=== PATIENT | female | born 1950 | race Caucasian/White ===

== ENCOUNTER → 2018-01-19 | Outpatient (CLI) | payer MEDICARE | END | disposition home or self-care (01) | LOC: CFH 12:57 | PROVIDERS: ATTEND Nurse Practitioner Primary Care | DX: Z12.31 Encounter for screening mammogram for malignant neoplasm of breast (principal) | CPT/HCPCS: 77067 ==

== ENCOUNTER → 2018-05-19 | Outpatient (CLI) | payer MEDICARE | END | disposition home or self-care (01) | LOC: CFH 12:55 | PROVIDERS: ATTEND Nurse Practitioner Primary Care | DX: M47.896 Other spondylosis, lumbar region (principal); M48.061 Spinal stenosis, lumbar region without neurogenic claudication; M54.16 Radiculopathy, lumbar region | CPT/HCPCS: 72148 ==

== ENCOUNTER 2018-10-03 23:40 | Emergency (ER) | payer MEDICARE ==
[~2018-10-03] VITALS: Ht 162.6 cm; Wt 79.4 kg
[2018-10-04] MEDS ORDERED: LIDOCAINE-MPF 1%, 5ML ONE (00:02)
[2018-10-04] MEDS ORDERED: BUPIVACAINE 0.25% ONE ×2 (00:02→00:32)
[2018-10-04 00:21] VITALS: BP 132/77
--- NOTE | 2018-10-04 00:21 | NUR ---
PA AT BEDSIDE PROVIDING DENTAL BLOCK TO LEFT LOWER JAW. PT TOLERATED WELL. UPDATED ON DISCHARGE INSTRUCTIONS.
[2018-10-04] MEDS ORDERED: BUPIVACAINE 0.25% INFIL ONE (00:30)
[2018-10-04] MEDS ORDERED: LIDOCAINE-MPF 1%, 5ML INFIL ONE (00:30)
[2018-10-04] MEDS ORDERED: LIDOCAINE-MPF 1%, 2ML ONE (00:32)
--- NOTE | 2018-10-04 00:33 | NUR ---
PER SHANTEL JARQUIN, ADDITIONAL MEDICATIONS PULLED OUT SO SHANTEL JARQUIN CAN PROVIDE ADDITIONAL BLOCK.
== END 2018-10-04 00:24 | disposition home or self-care (01) ==
LOC: ED 23:59
DX: K08.89 Other specified disorders of teeth and supporting structures (principal)
CPT/HCPCS: 64400; 99284

== ENCOUNTER → 2018-10-05 | Outpatient (CLI) | payer MEDICARE | END | disposition home or self-care (01) | LOC: CFH 06:38 | PROVIDERS: ATTEND Internal Medicine Cardiovascular Disease | DX: I34.0 Nonrheumatic mitral (valve) insufficiency (principal); I37.1 Nonrheumatic pulmonary valve insufficiency; I49.3 Ventricular premature depolarization | CPT/HCPCS: 78452; 93017; 93306; A9502 ==

== ENCOUNTER 2018-12-05 16:02 | Inpatient (IN) | payer MEDICARE ==
[~2018-12-05] VITALS: Ht 162.6 cm; Wt 76.5 kg
[2018-12-05] MEDS ORDERED: SODIUM CHLORIDE FLUSH 10ML SYR IVF ONE (16:30)
--- NOTE | 2018-12-05 16:58 | NUR ---
Pt to room from lobby.
[2018-12-05 17:07] LABS: BASOPHILS # (AUTO) 0.01 x10^3/uL (0-0.1); BASOPHILS % (AUTO) 0 % (0-1); EOSINOPHILS # (AUTO) 0.17 x10^3/uL (0-0.4); EOSINOPHILS % (AUTO) 2 % (1-7); LYMPHOCYTES # (AUTO) 0.26 x10^3/uL (1-3.4); LYMPHOCYTES % (AUTO) 4 % (22-44); MD NO; MEAN CORPUSCULAR HEMOGLOBIN 29.5 pg (27.0-34.8); MEAN CORPUSCULAR HGB CONC 33.5 g/dL (32.4-35.8); MEAN CORPUSCULAR VOLUME 88.1 fL (80-100); MEAN PLATELET VOLUME 9.1 fL (7.4-10.4); MONOCYTES # (AUTO) 0.37 x10^3/uL (0.2-0.8); MONOCYTES % (AUTO) 5 % (2-9); NEUTROPHILS # (AUTO) 6.52 x10^3/uL (1.8-6.8); NEUTROPHILS % (AUTO) 89 % (42-75); PLATELET COUNT 222 x10^3/uL (130-400); RED BLOOD COUNT 4.16 x10^6/uL (3.82-5.3); RED CELL DISTRIBUTION WIDTH 16.1 % (9.6-15.2)
[2018-12-05 17:16] LABS: ALANINE AMINOTRANSFERASE 287 U/L (12-78); ALBUMIN 3.2 g/dL (3.4-5.0); ANION GAP 17 mmol/L (5-15); CALCIUM 9.2 mg/dL (8.5-10.1); CHLORIDE 96 mmol/L (98-107); CREATININE 0.74 mg/dL (0.55-1.02)
[2018-12-05 17:19] LABS: ALKALINE PHOSPHATASE 541 U/L (45-117); BILIRUBIN,TOTAL 4.4 mg/dL (0.2-1.0); TOTAL PROTEIN 7.7 g/dL (6.4-8.2)
--- NOTE | 2018-12-05 17:44 | NUR ---
PT STATES SHE HAS HAD EPIGASTRIC PAIN FOR 2.5 WEEKS, ESPECIALLY AFTER EATING. RADIATES TO RIGHT SHOULDER. SOMETIMES SHE FEELS LIKE SHE IS GOING TO BLACK OUT. PT AMBULATED TO BATHROOM WITH ASSISTANCE OF
[2018-12-05 18:07] LABS: MICROSCOPIC INDICATED
[2018-12-05 18:26] LABS: CULTURE INDICATED? NO
[2018-12-05 18:40] LABS: INTERNATIONAL NORMALIZED RATIO 1.05 (0.93-1.1)
[2018-12-05] MEDS ORDERED: SODIUM CHLORIDE 0.9% 1,000 ML IV SCH (19:00)
[2018-12-05] MEDS ORDERED: hydrALAzine 20 MG/ML, 1ML IVPush PRN (19:00)
[2018-12-05] MEDS ORDERED: ONDANSETRON 2MG/ML, 2ML IVPush PRN (19:00)
[2018-12-05] MEDS ORDERED: SODIUM CHLORIDE FLUSH 10ML SYR IVF PRN (19:00)
[2018-12-05] MEDS ORDERED: MORPHINE SULFATE 4 MG/ML, 1ML ONE (19:32)
--- NOTE | 2018-12-05 19:39 | NUR ---
AFTER SEEN BY HOSPITALIST MEDICATED FOR PAIN PER ORDERS.
--- NOTE | 2018-12-05 20:02 | NUR ---
REPORT TO MAVIS MILTON. PT TO BE TRANSPORTED TO FLOOR
[2018-12-05] MEDS ORDERED: CEFTRIAXONE PMX 2GM/50ML 50 ML ONE (20:03)
[2018-12-05] MEDS: CEFTRIAXONE PMX 2GM/50ML 50 ML IV SCH (21:03)
[2018-12-05] MEDS: FAMOTIDINE 20 MG/2 ML IVPush SCH (21:03)
[2018-12-05 21:36] VITALS: BP 134/72
[2018-12-05] MEDS ORDERED: METOPROLOL SUCCINATE 25 MG TAB.ER.24H PO SCH (22:30)
[2018-12-05] MEDS: METRONIDAZOLE PMX 500MG/100ML 100 ML IV SCH (22:57)
[2018-12-05] MEDS: LISINOPRIL 10 MG TABLET PO SCH (23:02)
[2018-12-05] MEDS: MORPHINE SULFATE 4 MG/ML, 1ML IVPush PRN (23:21)
[2018-12-06 01:39] VITALS: BP 127/67
[2018-12-06] MEDS ORDERED: LISI30TA4 PO (02:27)
[2018-12-06] MEDS ORDERED: DULA0.75 SC (02:27)
[2018-12-06] MEDS ORDERED: METO25TA91 PO (02:27)
[2018-12-06] MEDS ORDERED: SITA100T PO (02:27)
[2018-12-06] MEDS ORDERED: ATOR-2 PO (02:27)
[2018-12-06] MEDS ORDERED: METF10007 PO (02:27)
[2018-12-06] MEDS ORDERED: NITR0.6T4 SL (02:27)
[2018-12-06] MEDS ORDERED: GLIP5TAB10 PO (02:27)
[2018-12-06] MEDS: MORPHINE SULFATE 4 MG/ML, 1ML IVPush PRN ×4 (04:26→19:55)
[2018-12-06 05:34] LABS: MEAN CORPUSCULAR HEMOGLOBIN 28.6 pg (27.0-34.8); MEAN CORPUSCULAR HGB CONC 33.1 g/dL (32.4-35.8); MEAN CORPUSCULAR VOLUME 86.3 fL (80-100); MEAN PLATELET VOLUME 8.8 fL (7.4-10.4); PLATELET COUNT 192 x10^3/uL (130-400); RED BLOOD COUNT 3.99 x10^6/uL (3.82-5.3)
[2018-12-06 05:44] LABS: ALBUMIN 2.7 g/dL (3.4-5.0); ANION GAP 12 mmol/L (5-15); CALCIUM 8.6 mg/dL (8.5-10.1); CHLORIDE 99 mmol/L (98-107)
[2018-12-06 05:46] LABS: ALANINE AMINOTRANSFERASE 233 U/L (12-78); ALKALINE PHOSPHATASE 515 U/L (45-117); BILIRUBIN,TOTAL 3.6 mg/dL (0.2-1.0); CREATININE 0.69 mg/dL (0.55-1.02); TOTAL PROTEIN 6.8 g/dL (6.4-8.2)
[2018-12-06] MEDS: METOPROLOL SUCCINATE 25 MG TAB.ER.24H PO SCH (06:17)
[2018-12-06] MEDS: METRONIDAZOLE PMX 500MG/100ML 100 ML IV SCH ×3 (06:20→19:55)
[2018-12-06 06:45] LABS: MD YES
[2018-12-06 06:48] LABS: BAND#(MANUAL) 0.74 x10^3/uL; BANDS%(MANUAL) 11 % (0-7); EOS% (MANUAL) 6 % (1-7); LYMPH#(MANUAL) 0.74 x10^3/uL (1-3.4); LYMPHS% (MANUAL) 11 % (22-44); MONOS#(MANUAL) 0.54 x10^3/uL (0.3-2.7); MONOS% (MANUAL) 8 % (2-9); SEG#(MANUAL) 4.29 x10^3/uL (1.8-6.8); SEGS% (MANUAL) 64 % (42-75)
[2018-12-06 06:49] LABS: ACANTHOCYTES 1+; ANISOCYTOSIS 1+
[2018-12-06 06:50] LABS: OVALOCYTES 1+
[2018-12-06 06:51] LABS: <PLATELET ESTIMATE> ADEQUATE; <PLT MORPHOLOGY> NORMAL PLT MORPH
[2018-12-06 07:38] VITALS: BP 90/54
[2018-12-06] MEDS ORDERED: NS + 40MEQ KCL 1,000 ML IV SCH (08:30)
[2018-12-06] MEDS: LISINOPRIL 10 MG TABLET PO SCH (09:00)
[2018-12-06] MEDS ORDERED: LISINOPRIL 20 MG TABLET ONE (10:01)
[2018-12-06] MEDS: FAMOTIDINE 20 MG/2 ML IVPush SCH ×2 (10:11→21:11)
[2018-12-06] MEDS ORDERED: HYDROcodone/APAP 5/325 TABLET PO PRN (10:30)
[2018-12-06 12:33] VITALS: BP 119/70
[2018-12-06] MEDS ORDERED: DIPHENHYDRAMINE 50 MG/ML, 1ML IVPush ONE (15:00)
[2018-12-06 21:02] VITALS: BP 123/69
[2018-12-06] MEDS: CEFTRIAXONE PMX 2GM/50ML 50 ML IV SCH (21:12)
[2018-12-07 00:11] VITALS: BP 116/67
[2018-12-07] MEDS: MORPHINE SULFATE 4 MG/ML, 1ML IVPush PRN ×6 (01:29→22:48)
[2018-12-07] MEDS: METRONIDAZOLE PMX 500MG/100ML 100 ML IV SCH ×3 (04:15→20:57)
[2018-12-07 04:37] LABS: BASOPHILS % (AUTO) 0 % (0-1); EOSINOPHILS # (AUTO) 0.46 x10^3/uL (0-0.4); EOSINOPHILS % (AUTO) 7 % (1-7); LYMPHOCYTES # (AUTO) 0.77 x10^3/uL (1-3.4); LYMPHOCYTES % (AUTO) 12 % (22-44); MD NO; MEAN CORPUSCULAR HEMOGLOBIN 29.7 pg (27.0-34.8); MEAN CORPUSCULAR HGB CONC 33.6 g/dL (32.4-35.8); MEAN CORPUSCULAR VOLUME 88.3 fL (80-100); MEAN PLATELET VOLUME 8.6 fL (7.4-10.4); MONOCYTES # (AUTO) 0.26 x10^3/uL (0.2-0.8); MONOCYTES % (AUTO) 4 % (2-9); NEUTROPHILS % (AUTO) 76 % (42-75); PLATELET COUNT 197 x10^3/uL (130-400); RED BLOOD COUNT 3.75 x10^6/uL (3.82-5.3); RED CELL DISTRIBUTION WIDTH 16.2 % (9.6-15.2)
[2018-12-07 04:46] LABS: ALANINE AMINOTRANSFERASE 181 U/L (12-78); ALBUMIN 2.5 g/dL (3.4-5.0); ANION GAP 11 mmol/L (5-15); CALCIUM 8.5 mg/dL (8.5-10.1); CHLORIDE 106 mmol/L (98-107); CREATININE 0.58 mg/dL (0.55-1.02)
[2018-12-07 04:49] LABS: ALKALINE PHOSPHATASE 483 U/L (45-117); BILIRUBIN,TOTAL 2.9 mg/dL (0.2-1.0); TOTAL PROTEIN 6.2 g/dL (6.4-8.2)
[2018-12-07 05:40] VITALS: BP 110/65
[2018-12-07] MEDS: METOPROLOL SUCCINATE 25 MG TAB.ER.24H PO SCH (05:41)
[2018-12-07 07:02] VITALS: BP 100/57
[2018-12-07] MEDS: LISINOPRIL 10 MG TABLET PO SCH (09:00)
[2018-12-07 09:29] LABS: THYROID STIMULATING HORMONE 0.558 mIU/L (0.358-3.740)
[2018-12-07 09:39] LABS: INTERNATIONAL NORMALIZED RATIO 1.11 (0.93-1.1); PROTHROMBIN TIME 11.6 Seconds (9.6-11.5)
[2018-12-07] MEDS: FAMOTIDINE 20 MG/2 ML IVPush SCH ×2 (10:04→19:39)
[2018-12-07 11:25] LABS: AMPHETAMINE SCREEN, URINE Negative (Negative); BARBITURATE SCREEN, URINE Negative (Negative); BENZODIAZEPINE SCREEN, URINE Negative (Negative); CANNABINOID SCREEN, URINE Negative (Negative); COCAINE SCREEN, URINE Negative (Negative); OPIATE SCREEN, URINE Positive (Negative)
[2018-12-07 11:31] LABS: METHADONE SCREEN, URINE Negative (Negative)
[2018-12-07 12:00] VITALS: BP 131/66
[2018-12-07] MEDS ORDERED: FENTANYL PF 250 MCG/5ML ONE (14:12)
[2018-12-07] MEDS ORDERED: PROPOFOL 10 MG/ML, 20ML ONE (14:13)
[2018-12-07] MEDS ORDERED: SUCCINYLCHOLINE 20 MG/ML, 10ML ONE (14:13)
[2018-12-07] MEDS ORDERED: ROCURONIUM 10MG/ML,5ML ONE (14:13)
[2018-12-07] MEDS ORDERED: PROMETHAZINE 25 MG/ML, 1ML IV PRN (14:30)
[2018-12-07] MEDS ORDERED: OXYcodone 5 MG/5 ML ORAL.SOL UDC PO PRN (14:30)
[2018-12-07] MEDS ORDERED: LABETALOL 5MG/ML, 20ML IV PRN (14:30)
[2018-12-07] MEDS ORDERED: ONDANSETRON 2MG/ML, 2ML IV PRN ×2 (14:30→18:30)
[2018-12-07] MEDS ORDERED: HYDROmorphone 2 MG/ML, 1ML IVPush PRN ×2 (14:30→18:30)
[2018-12-07] MEDS ORDERED: MEPERIDINE/PF 25MG/0.5ML IVPush PRN (14:30)
[2018-12-07] MEDS ORDERED: hydrALAzine 20 MG/ML, 1ML IV PRN (14:30)
[2018-12-07] MEDS ORDERED: BUPIVACAINE/EPI 0.5% 1:200K ONE (14:36)
[2018-12-07] MEDS ORDERED: HYDROCORTISONE 100 MG INJ. ONE (14:54)
[2018-12-07] MEDS ORDERED: KETOROLAC 30 MG/1 ML ONE (15:03)
[2018-12-07] MEDS ORDERED: ONDANSETRON 2MG/ML, 2ML ONE (15:16)
[2018-12-07] MEDS ORDERED: PIPERACILLIN/TAZO/PMX 3.375GM 50 ML IV ONE (15:30)
[2018-12-07] MEDS ORDERED: FENTANYL PF 100 MCG/2ML ONE (15:36)
[2018-12-07] MEDS ORDERED: OXYcodone 5 MG/5 ML ORAL.SOL UDC ONE (15:37)
[2018-12-07] MEDS: FENTANYL PF 100 MCG/2ML IV PRN ×2 (15:39→16:03)
[2018-12-07] MEDS ORDERED: HYDROcodone/APAP 5/325 TABLET PO PRN (18:30)
[2018-12-07] MEDS ORDERED: DIPHENHYDRAMINE 25 MG CAPSULE PO PRN (18:30)
[2018-12-07] MEDS ORDERED: morphine SULFATE 10 MG/ML, 1ML IV PRN (18:30)
[2018-12-07] MEDS ORDERED: DIPHENHYDRAMINE 50 MG/ML, 1ML IV PRN (18:30)
[2018-12-07 19:25] VITALS: BP 115/64
[2018-12-07] MEDS: CIPROFLOXACIN/PMX 400MG/200ML 200 ML IVPB SCH (19:39)
[2018-12-07] MEDS: POTASSIUM CHLORIDE 20 MEQ in LACTATED RINGERS 1,000 ML IV SCH (19:39)
[2018-12-07] MEDS: CEFTRIAXONE PMX 2GM/50ML 50 ML IV SCH (22:04)
[2018-12-08 00:11] VITALS: BP 106/60
[2018-12-08 04:00] VITALS: BP 113/56
[2018-12-08] MEDS: METRONIDAZOLE PMX 500MG/100ML 100 ML IV SCH ×3 (04:02→20:37)
[2018-12-08 05:09] LABS: ALANINE AMINOTRANSFERASE 186 U/L (12-78); ALBUMIN 2.8 g/dL (3.4-5.0); ANION GAP 9 mmol/L (5-15); CALCIUM 9.5 mg/dL (8.5-10.1); CHLORIDE 104 mmol/L (98-107)
[2018-12-08 05:12] LABS: ALKALINE PHOSPHATASE 556 U/L (45-117); BILIRUBIN,TOTAL 2.2 mg/dL (0.2-1.0)
[2018-12-08 05:22] LABS: BASOPHILS # (AUTO) 0.03 x10^3/uL (0-0.1); BASOPHILS % (AUTO) 0 % (0-1); EOSINOPHILS # (AUTO) 0.12 x10^3/uL (0-0.4); EOSINOPHILS % (AUTO) 1 % (1-7); LYMPHOCYTES % (AUTO) 13 % (22-44); MD NO; MEAN CORPUSCULAR HEMOGLOBIN 28.7 pg (27.0-34.8); MEAN CORPUSCULAR HGB CONC 32.6 g/dL (32.4-35.8); MEAN CORPUSCULAR VOLUME 87.8 fL (80-100); MEAN PLATELET VOLUME 8.5 fL (7.4-10.4); MONOCYTES # (AUTO) 0.24 x10^3/uL (0.2-0.8); MONOCYTES % (AUTO) 3 % (2-9); NEUTROPHILS # (AUTO) 6.85 x10^3/uL (1.8-6.8); NEUTROPHILS % (AUTO) 82 % (42-75); PLATELET COUNT 212 x10^3/uL (130-400); RED BLOOD COUNT 4.11 x10^6/uL (3.82-5.3); RED CELL DISTRIBUTION WIDTH 16.5 % (9.6-15.2)
[2018-12-08] MEDS: ENOXAPARIN 40 MG/0.4 ML SQ SCH (05:33)
[2018-12-08] MEDS: METOPROLOL SUCCINATE 25 MG TAB.ER.24H PO SCH (05:33)
[2018-12-08] MEDS: MORPHINE SULFATE 4 MG/ML, 1ML IVPush PRN ×4 (05:33→17:57)
[2018-12-08 07:28] VITALS: BP 128/73
[2018-12-08] MEDS: CIPROFLOXACIN/PMX 400MG/200ML 200 ML IVPB SCH (07:30)
[2018-12-08] MEDS: FAMOTIDINE 20 MG/2 ML IVPush SCH (07:30)
[2018-12-08] MEDS: LISINOPRIL 10 MG TABLET PO SCH (07:30)
[2018-12-08] MEDS: POTASSIUM CHLORIDE 20 MEQ in LACTATED RINGERS 1,000 ML IV SCH (11:11)
[2018-12-08 13:23] VITALS: BP 113/60
[2018-12-08] MEDS: OXYcodone/APAP 5/325MG TABLET PO PRN ×2 (14:54→20:37)
[2018-12-08] MEDS ORDERED: SENNOSIDES 8.6 MG TABLET PO ONE (18:30)
[2018-12-08 18:48] VITALS: BP 115/57
[2018-12-08] MEDS: FAMOTIDINE 20 MG TABLET PO SCH (20:37)
[2018-12-08] MEDS: CEFTRIAXONE PMX 2GM/50ML 50 ML IV SCH (22:36)
[2018-12-09 00:25] VITALS: BP 117/66
[2018-12-09] MEDS: POTASSIUM CHLORIDE 20 MEQ in LACTATED RINGERS 1,000 ML IV SCH ×2 (02:11→15:11)
[2018-12-09] MEDS: METRONIDAZOLE PMX 500MG/100ML 100 ML IV SCH ×2 (04:29→13:19)
[2018-12-09] MEDS: ENOXAPARIN 40 MG/0.4 ML SQ SCH (04:30)
[2018-12-09] MEDS: METOPROLOL SUCCINATE 25 MG TAB.ER.24H PO SCH (04:30)
[2018-12-09] MEDS: OXYcodone/APAP 5/325MG TABLET PO PRN ×3 (04:30→13:19)
[2018-12-09 07:04] VITALS: BP 136/56
[2018-12-09 07:31] LABS: ALANINE AMINOTRANSFERASE 130 U/L (12-78); ALBUMIN 2.2 g/dL (3.4-5.0); ANION GAP 8 mmol/L (5-15); CALCIUM 8.4 mg/dL (8.5-10.1); CHLORIDE 105 mmol/L (98-107); CREATININE 0.47 mg/dL (0.55-1.02)
[2018-12-09 07:33] LABS: ALKALINE PHOSPHATASE 413 U/L (45-117); BILIRUBIN,TOTAL 1.4 mg/dL (0.2-1.0); TOTAL PROTEIN 5.7 g/dL (6.4-8.2)
[2018-12-09] MEDS: FAMOTIDINE 20 MG TABLET PO SCH (08:39)
[2018-12-09] MEDS: LISINOPRIL 10 MG TABLET PO SCH (08:39)
[2018-12-09] MEDS ORDERED: POLYETHYLENE GLYCOL 17 GM PACKET PO SCH (09:00)
[2018-12-09] MEDS: MORPHINE SULFATE 4 MG/ML, 1ML IVPush PRN (11:57)
[2018-12-09 14:37] VITALS: BP 146/72
[2018-12-09] MEDS ORDERED: POTASSIUM CHLORIDE 20 MEQ TAB.ER.PRT PO ONE (15:00)
[2018-12-16] MEDS ORDERED: LAMO25TB7 PO (15:18)
== END 2018-12-09 18:44 | disposition home or self-care (01) | DRG 417 ==
LOC: ED 17:53 → EDIP 18:57 → 3NW 20:39
PROVIDERS: ADMIT Family Medicine; ATTEND Family Medicine
PROC: 0FT44ZZ Resection of Gallbladder, Percutaneous Endoscopic Approach (ICD-10-PCS; principal; 2018-12-07 15:00)
DX: K80.63 Calculus of gallbladder and bile duct with acute cholecystitis with obstruction (principal); R65.11 Systemic inflammatory response syndrome (SIRS) of non-infectious origin with acute organ dysfunction; E87.1 Hypo-osmolality and hyponatremia; E46 Unspecified protein-calorie malnutrition; B17.9 Acute viral hepatitis, unspecified; D72.825 Bandemia; E11.9 Type 2 diabetes mellitus without complications; E78.5 Hyperlipidemia, unspecified; E87.6 Hypokalemia; I10 Essential (primary) hypertension; I25.10 Atherosclerotic heart disease of native coronary artery without angina pectoris; N28.89 Other specified disorders of kidney and ureter; Z68.28 Body mass index [BMI] 28.0-28.9, adult; Z87.891 Personal history of nicotine dependence; Z90.710 Acquired absence of both cervix and uterus; Z88.6 Allergy status to analgesic agent; Z88.2 Allergy status to sulfonamides; Z90.49 Acquired absence of other specified parts of digestive tract
CPT/HCPCS: 36415; 74181; 78226; 80053; 80074; 80307; 81001; 82962; 82977; 83540; 83550; 83690; 83880; 84443; 85025; 85610; 85730; 86308; 87496; 87806; 88304; 93005; 99285; G0378; J0696; J0744; J1650; J1885; J2405; J2704; J3010; J3480; A9537; C9898; G0475; J0330; J1200; J1720; J2270; J3490; J7030; J7120

== ENCOUNTER 2019-01-18 11:48 | Outpatient (CLI) | payer MEDICARE | END 2019-01-18 23:59 | disposition home or self-care (01) | LOC: CFH 11:48 | PROVIDERS: ATTEND Nurse Practitioner Primary Care | DX: K76.89 Other specified diseases of liver (principal); K86.89 Other specified diseases of pancreas; K57.90 Diverticulosis of intestine, part unspecified, without perforation or abscess without bleeding; N28.89 Other specified disorders of kidney and ureter; I81 Portal vein thrombosis; Z90.49 Acquired absence of other specified parts of digestive tract | CPT/HCPCS: 74177; Q9967 ==

== ENCOUNTER 2019-08-25 06:58 | Day surgery (SDC) | payer MEDICARE ==
[~2019-08-25] VITALS: Ht 162.6 cm; Wt 73.6 kg
[~2019-08-25 06:58] MED LIST: ACID1TAB7 PO; AMOX1TAB12 PO; APIX5TAB PO; ATOR-2 PO; DOCU-131 PO; DULA0.75 SC; GLIP5TAB10 PO; LAMO25TB7 PO; LISI30TA4 PO; METF10007 PO; METO25TA91 PO; NITR0.6T4 SL; SITA100T PO
[2019-08-25 07:40] VITALS: BP 139/82
[2019-08-25] MEDS ORDERED: SODIUM CHLORIDE 0.9% 1,000 ML IV SCH (07:44)
[2019-08-25 08:22] LABS: INTERNATIONAL NORMALIZED RATIO 0.97 (0.93-1.1); PROTHROMBIN TIME 10.3 Seconds (9.6-11.5)
[2019-08-25] MEDS ORDERED: FLUMAZENIL 0.1 MG/1 ML, 5ML ONE (09:10)
[2019-08-25] MEDS ORDERED: NALOXONE 1 MG/ML, 2ML ONE (09:10)
[2019-08-25] MEDS ORDERED: FENTANYL PF 100 MCG/2ML ONE ×2 (09:10)
[2019-08-25] MEDS ORDERED: MIDAZOLAM 1 MG/ML, 5ML ONE (09:10)
== END 2019-08-25 12:05 | disposition home or self-care (01) ==
LOC: OUT 06:58 → EDSTATUS 09:00 → OUT 12:05
PROVIDERS: ATTEND Internal Medicine Gastroenterology
DX: R94.5 Abnormal results of liver function studies (principal); K74.3 Primary biliary cirrhosis; Q85.9 Phakomatosis, unspecified; I10 Essential (primary) hypertension; E11.9 Type 2 diabetes mellitus without complications; I25.10 Atherosclerotic heart disease of native coronary artery without angina pectoris; Z79.82 Long term (current) use of aspirin; Z79.84 Long term (current) use of oral hypoglycemic drugs; Z79.891 Long term (current) use of opiate analgesic; Z79.899 Other long term (current) drug therapy; Z88.2 Allergy status to sulfonamides; Z88.5 Allergy status to narcotic agent; Z87.891 Personal history of nicotine dependence; Z90.710 Acquired absence of both cervix and uterus; Z90.49 Acquired absence of other specified parts of digestive tract
CPT/HCPCS: 36415; 47000; 71045; 77012; 85610; 88307; 99156; 99157; J2250; J3010; J7030; J2310

== ENCOUNTER 2019-09-03 21:10 | Emergency (ER) | payer MEDICARE ==
--- NOTE | 2019-09-03 21:21 | NUR ---
Pt reports pain 10/10 with deep breathing on liver bx site she had 9 days ago. Placed cardiac and vitals signs monitors. Safety precautions in place, call light placed within reach.
[2019-09-03] MEDS ORDERED: METO-290 PO (21:37)
[2019-09-03] MEDS ORDERED: MORPHINE SULFATE 4 MG/ML, 1ML ONE ×2 (21:38→21:58)
[2019-09-03] MEDS ORDERED: ONDANSETRON 2MG/ML, 2ML ONE (21:38)
[2019-09-03] MEDS: MORPHINE SULFATE 4 MG/ML, 1ML IVPush PRN ×2 (21:41→22:02)
[2019-09-03 21:52] LABS: BASOPHILS # (AUTO) 0.04 x10^3/uL (0-0.1); BASOPHILS % (AUTO) 0 % (0-1); EOSINOPHILS # (AUTO) 0.23 x10^3/uL (0-0.4); EOSINOPHILS % (AUTO) 2 % (1-7); LYMPHOCYTES # (AUTO) 1.87 x10^3/uL (1-3.4); LYMPHOCYTES % (AUTO) 19 % (22-44); MD NO; MEAN CORPUSCULAR HEMOGLOBIN 31.4 pg (27.0-34.8); MEAN CORPUSCULAR HGB CONC 33.7 g/dL (32.4-35.8); MEAN CORPUSCULAR VOLUME 93.4 fL (80-100); MEAN PLATELET VOLUME 8.4 fL (7.4-10.4); MONOCYTES # (AUTO) 0.59 x10^3/uL (0.2-0.8); MONOCYTES % (AUTO) 6 % (2-9); NEUTROPHILS # (AUTO) 6.96 x10^3/uL (1.8-6.8); NEUTROPHILS % (AUTO) 72 % (42-75); PLATELET COUNT 267 x10^3/uL (130-400); RED BLOOD COUNT 4.07 x10^6/uL (3.82-5.3); RED CELL DISTRIBUTION WIDTH 14.4 % (9.6-15.2)
[2019-09-03] MEDS ORDERED: ONDANSETRON 2MG/ML, 2ML IVPush ONE (22:00)
[2019-09-03 22:01] LABS: ALANINE AMINOTRANSFERASE 148 U/L (12-78); ALBUMIN 3.4 g/dL (3.4-5.0); ANION GAP 7 mmol/L (5-15); CALCIUM 9.4 mg/dL (8.5-10.1); CHLORIDE 105 mmol/L (98-107); CREATININE 0.82 mg/dL (0.55-1.02)
--- NOTE | 2019-09-03 22:03 | NUR ---
Placed on 2L NC. Pt was desating to 89% on RA, now 96%.
[2019-09-03 22:04] LABS: ALKALINE PHOSPHATASE 285 U/L (45-117); BILIRUBIN,TOTAL 0.3 mg/dL (0.2-1.0); TOTAL PROTEIN 8.1 g/dL (6.4-8.2)
[2019-09-03] MEDS ORDERED: CYAN-27 PO (22:13)
[2019-09-03] MEDS ORDERED: GLIP2.5T3 PO (22:13)
[2019-09-03] MEDS ORDERED: [UNRECOGNIZED DRUG - OTHER] (22:13)
[2019-09-03] MEDS ORDERED: UBID100C41 PO (22:13)
[2019-09-03] MEDS ORDERED: FAMO20TA7 PO (22:13)
[2019-09-03] MEDS ORDERED: ASPI-515 PO (22:13)
[2019-09-03] MEDS ORDERED: ACET-1600 PO (22:13)
--- NOTE | 2019-09-03 22:28 | NUR ---
Awaiting CT scan. Pt resting comfortably on [facility], placed call light at reach, locked side rails on [facility].
--- NOTE | 2019-09-03 23:31 | NUR ---
Call to CT, pt ready for CT has new IV.
--- NOTE | 2019-09-03 23:41 | NUR ---
Pt to CT.
[2019-09-04 00:01] LABS: MICROSCOPIC AUTO
[2019-09-04 00:02] LABS: CULTURE INDICATED? NO
--- NOTE | 2019-09-04 00:02 | NUR ---
Resting on gurney, no acute distress noted. VSS.
--- NOTE | 2019-09-04 00:11 | NUR ---
Reports pain 8/10 states it got worse after CT scan. Will update ERP.
[2019-09-04] MEDS ORDERED: MORPHINE SULFATE 4 MG/ML, 1ML ONE (00:13)
[2019-09-04] MEDS ORDERED: MORPHINE SULFATE 4 MG/ML, 1ML IVPush PRN (00:30)
--- NOTE | 2019-09-04 00:56 | NUR ---
Call to CT for update on CT ronni not read, per tech she will resend for reading.
--- NOTE | 2019-09-04 01:40 | NUR ---
Pt ambulated to restroom on steady gait.
[2019-09-04 02:11] VITALS: BP 113/48
--- NOTE | 2019-09-04 02:12 | NUR ---
break rn: provided pt with water per her request, denies further needs, call light within reach
--- NOTE | 2019-09-04 02:20 | NUR ---
ERP at bedside.
[2019-09-04] MEDS ORDERED: OMNIPAQUE 350 MG/ML, 100ML BOTTLE ONE (03:46)
== END 2019-09-04 02:41 | disposition home or self-care (01) ==
LOC: ED 21:44
DX: R10.11 Right upper quadrant pain (principal); K74.3 Primary biliary cirrhosis; E07.9 Disorder of thyroid, unspecified; I10 Essential (primary) hypertension; E78.5 Hyperlipidemia, unspecified; I25.10 Atherosclerotic heart disease of native coronary artery without angina pectoris; Z90.89 Acquired absence of other organs; Z90.710 Acquired absence of both cervix and uterus; Z90.49 Acquired absence of other specified parts of digestive tract; Z87.891 Personal history of nicotine dependence
CPT/HCPCS: 36415; 71275; 74177; 80053; 81001; 83690; 85025; 96374; 96375; 96376; 99285; J2270; J2405; Q9967

== ENCOUNTER 2020-04-29 19:30 | Emergency (ER) | payer MEDICARE ==
[~2020-04-29] VITALS: Ht 157.5 cm; Wt 72.1 kg
[~2020-04-29 19:30] MED LIST changes: +ACET-1600 PO; +ASPI-515 PO; +CYAN-27 PO; +FAMO20TA7 PO; +GLIP2.5T3 PO; +METO-290 PO; +UBID100C41 PO; +[UNRECOGNIZED DRUG - OTHER]
[2020-04-29 19:35] VITALS: BP 129/91
[2020-04-29] MEDS ORDERED: MICROFIBRILLAR COLLAGEN 0.5GM/PACK TP ONE (19:37)
[2020-04-29] MEDS ORDERED: MICROFIBRILLAR COLLAGEN 1 GM TP ONE (20:23)
--- NOTE | 2020-04-29 20:35 | NUR ---
DC FROM [facility].
== END 2020-04-29 20:44 | disposition home or self-care (01) ==
LOC: ED 20:38
DX: S61.001A Unspecified open wound of right thumb without damage to nail, initial encounter (principal); E11.9 Type 2 diabetes mellitus without complications; I10 Essential (primary) hypertension; Z90.89 Acquired absence of other organs; Z90.49 Acquired absence of other specified parts of digestive tract; Z90.710 Acquired absence of both cervix and uterus; W45.8XXA Other foreign body or object entering through skin, initial encounter; Y93.89 Activity, other specified; Y92.89 Other specified places as the place of occurrence of the external cause; Y99.8 Other external cause status
CPT/HCPCS: 99282

== ENCOUNTER → 2020-10-16 | Outpatient (CLI) | payer MEDICARE ==
[~2020-10-16] MED LIST changes: -ASPI-515 PO; +ASPI-963 PO
== END | disposition home or self-care (01) ==
LOC: CFH 08:30
PROVIDERS: ATTEND Internal Medicine Cardiovascular Disease
DX: I25.89 Other forms of chronic ischemic heart disease (principal); I25.10 Atherosclerotic heart disease of native coronary artery without angina pectoris; I10 Essential (primary) hypertension
CPT/HCPCS: 78452; 93017; A9502

== ENCOUNTER → 2021-01-27 | Outpatient (CLI) | payer MEDICARE | END | disposition home or self-care (01) | LOC: CFH 11:54 | PROVIDERS: ATTEND Nurse Practitioner Primary Care | DX: Z12.31 Encounter for screening mammogram for malignant neoplasm of breast (principal); Z12.39 Encounter for other screening for malignant neoplasm of breast; R10.13 Epigastric pain; Z90.49 Acquired absence of other specified parts of digestive tract | CPT/HCPCS: 74018; 76641; 77063; 77067 ==